=== PATIENT | female | born 1960 | race African-American/Black ===

== ENCOUNTER 2016-12-07 10:18 | Inpatient (IN) | payer OTHER ==
[2016-12-07 12:54] VITALS: BMI 26.6
--- NOTE | 2016-12-07 14:16 | HP ---
CIWA Score - CIWA Score Nausea/Vomitin Muscle Tremors: 3 Anxiety: 3 Agitation: 3 Paroxysmal Sweats: 1-Minimal Palms Moist Orientation: 0-Oriented Tacttile Disturbances: 2-Mild Itch/Numbness/Burn Auditory Disturbances: 2-Mild Harshness/Frighten Visual Disturbances: 2-Mild Sensitivity Headache: 2-Mild CIWA-Ar Total Score: 21 Admission ROS BHS - HPI Chief Complaint: i need help to stop drinking alcohol Allergies/Adverse Reactions: Allergies Allergy/AdvReac Type Severity Reaction Status Date / Time AMOXICILLIN Allergy Severe Rash Uncoded 12/07/16 14:09 History of Present Illness: this 56 years old female with alcohol dependence,withdrawal symptom,last detox [facility] 08/23/14 to 09/05/14 syncope alcohol related type 2 dm on insulin hypercholesterolemia ged no significant period of sobriety pancreatitis Exam Limitations: No Limitations - Ebola screening Have you traveled outside of the country in the last 21 days: No Have you had contact with anyone from an Ebola affected area: No Have you been sick,other than usual withdrawal symptoms: No - Review of Systems Constitutional: Loss of Appetite, Malaise, Night Sweats, Changes in sleep, Weakness EENT: reports: Nose Congestion, Other (hisory of otitis mastoiditis in the past) Respiratory: reports: No Symptoms reported Cardiac: reports: No Symptoms Reported GI: reports: Nausea, Vomiting, Abdominal cramping, Other (history of pancreatitis) : reports: No Symptoms Reported Musculoskeletal: reports: Back Pain, Muscle Pain Integumentary: reports: Dryness Neuro: reports: Headache, Tremors Endocrine: reports: No Symptoms Reported Hematology: reports: No Symptoms Reported Psychiatric: reports: Judgement Intact, Mood/Affect Appropiate, Orientated x3, Anxious Patient History - Patient Medical History Hx Anemia: No Hx Asthma: No Hx Chronic Obstructive Pulmonary Disease (COPD): No Hx Cancer: No Hx Cardiac Disorders: No Hx Congestive Heart Failure: No Hx Hypertension: Yes Hx Hypercholesterolemia: Yes (NON COMPLIANCE) Hx Pacemaker: No HX Cerebrovascular Accident: No Hx Seizures: No Hx Dementia: No Hx Diabetes: Yes Hx Gastrointestinal Disorders: No Hx Liver Disease: No Hx Genitourinary Disorders: No Hx Sexually Transmitted Disorders: No Hx Renal Disease (ESRD): No Hx Thyroid Disease: No Hx Human Immunodeficiency Virus (HIV): No (never been tested) Hx Hepatitis C: No Hx Depression: Yes (anxiety) Hx Suicide Attempt: No Hx Bipolar Disorder: No Hx Schizophrenia: No Other Medical History: no suicidal,no homicidal - Patient Surgical History Past Surgical History: Yes Hx Neurologic Surgery: No Hx Cataract Extraction: No Hx Cardiac Surgery: No Hx Lung Surgery: No Hx Breast Surgery: No Hx Breast Biopsy: No Hx Abdominal Surgery: Yes (c section ) Hx Appendectomy: Yes (IN 1989) Hx Cholecystectomy: No Hx Genitourinary Surgery: No Hx Section: No Hx Orthopedic Surgery: No - PPD History Documented Results: Positive w/o proof Date: 03/13/14 PPD to be Administered?: No - Smoking Cessation Smoking history: Current every day smoker Have you smoked in the past 12 months: Yes Aproximately how many cigarettes per day: 10 Hx Chewing Tobacco Use: No Initiated information on smoking cessation: Yes 'Breaking Loose' booklet given: 12/07/16 - Substance & Tx. History Hx Alcohol Use: Yes Hx Substance Use: No Substance Use Type: Alcohol Hx Substance Use Treatment: Yes ([facility] 09/01/14 to 09/05/14) - Substances Abused Alcohol-vodka Route: Oral Frequency: Daily Amount used: 1 1/2 pts. Age of first use: 20 Date of Last Use: 12/07/16 Family Disease History - Family Disease History Family Disease History: Diabetes: Sister, Heart Disease: Father (), Mother (ALCOHOL,), Respiratory: Son (THC), Other: Father, Son Admission Physical Exam BHS - Vital Signs Vital Signs: Vital Signs - 24 hr 12/07/16 12:52 Temperature 97.4 F L Pulse Rate 84 Respiratory 20 Rate Blood Pressure 132/76 - Physical General Appearance: Yes: Moderate Distress, Tremorous, Irritable, Sweating, Anxious HEENTM: Yes: Nasal Congestion (history of mastoiditis right) Respiratory: Yes: Lungs Clear, Normal Breath Sounds, No Respiratory Distress Neck: Yes: Within Normal Limits Breast: Yes: Breast Exam Deferred Cardiology: Yes: Within Normal Limits, Regular Rhythm, Regular Rate, S1, S2 Abdominal: Yes: Within Normal Limits, Normal Bowel Sounds, Non Tender, Flat, Soft Genitourinary: Yes: Within Normal Limits Back: Yes: Muscle Spasm Musculoskeletal: Yes: full range of Motion, Back pain Extremities: Yes: Normal Range of Motion, Tremors Neurological: Yes: steel fitter II-XII NML intact, Fully Oriented, Alert, Motor Strength 5/5 Integumentary: Yes: Dry Lymphatic: Yes: Within Normal Limits - Diagnostic (1) Alcohol dependence with uncomplicated withdrawal Current Visit: Yes Status: Acute (2) Essential (primary) hypertension Current Visit: No Status: Acute (3) Hypercholesteremia Current Visit: No Status: Acute (4) Insomnia Current Visit: No Status: Acute (5) Nicotine dependence Current Visit: No Status: Acute (6) Right shoulder injury Current Visit: No Status: Acute (7) Syncope Current Visit: No Status: Acute (8) Pancreatitis Current Visit: Yes Status: Acute (9) Frequent falls Current Visit: Yes Status: Acute (10) Anxiety Current Visit: Yes Status: Acute Cleared for Admission BHS - Detox or Rehab [facility] Level of Care: Medically Managed Detox Regimen/Protocol: Librium S Breath Alcohol Content Breath Alcohol Content: 0 Urine Pregancy Test - Result Urine Test Results: Negative- NO Line Present Urine Drug Screen - Results Drug Screen Negative: No Urine Drug Screen Results: TCA-Tricyclic Antidepress
[2016-12-07] MEDS ORDERED: MAG HYDROX/AL HYDROX/SIMETH 30 ML UNIT-DOSE CUP PO PRN (14:48)
[2016-12-07] MEDS ORDERED: LOPERAMIDE HCL 2 MG CAPSULE PO PRN (14:48)
[2016-12-07] MEDS ORDERED: hydrOXYzine PAMOATE 25 MG CAPSULE (FP) PO PRN (14:48)
[2016-12-07] MEDS ORDERED: MAGNESIUM HYDROX 2400MG/30ML ORAL SUSPENSION 30 ML CUP PO PRN (14:48)
[2016-12-07] MEDS ORDERED: P-EPHED 60MG/TRIPROLIDI 2.5MG TABLET PO PRN (14:48)
[2016-12-07] MEDS ORDERED: ACETAMINOPHEN 325 MG TABLET (FP) PO PRN (14:48)
[2016-12-07] MEDS ORDERED: MAGNESIUM CITRATE 300 ML BOTTLE PO PRN (14:48)
[2016-12-07] MEDS ORDERED: guaiFENesin/D-METHORPHAN HB 10 ML UNIT-DOSE CUPS PO PRN (14:48)
[2016-12-07] MEDS ORDERED: MENTHOL/PHENOL 1 EACH UD MM PRN (14:48)
--- NOTE | 2016-12-07 15:27 | CONSULT ---
[facility] Psychiatric Consult - Data Substance Abuse History: Smoking history: Current every day smoker. Have you smoked in the past 12 months: Yes. Aproximately how many cigarettes per day: 10. Hx Chewing Tobacco Use: No. Initiated information on smoking cessation: Yes. 'Breaking Loose' booklet given: 12/07/16. - Substance & Tx. History. Hx Alcohol Use: Yes. Hx Substance Use: No. Substance Use Type: Alcohol. Hx Substance Use Treatment: Yes ([facility] 09/01/14 to 09/05/14). - Substances Abused. Alcohol-vodka. Route: Oral. Frequency: Daily. Amount used: 1 1/2 pts. Age of first use: 20. Date of Last Use: 12/07/16
[2016-12-07] MEDS ORDERED: chlordiazePOXIDE HCL 25 MG CAPSULE PO ONE (16:00)
[2016-12-07] MEDS: metFORMIN HCL 500 MG TABLET (FP) PO SCH (16:50)
[2016-12-07] MEDS: chlordiazePOXIDE HCL 25 MG CAPSULE PO SCH ×2 (17:10→23:12)
[2016-12-07] MEDS: NICOTINE 21 MG/24 HOURS TOPICAL PATCH TD SCH (17:51)
[2016-12-07] MEDS: ATORVASTATIN CA 40 MG TABLET (FP) PO SCH (22:10)
[2016-12-07] MEDS: THIAMINE HCL 100 MG TABLET (FP) PO SCH (22:10)
[2016-12-07] MEDS: INSULIN DETEMIR 100 UNITS/ML MDV SQ SCH (23:12)
[2016-12-08 03:11] LABS: URINE APPEARANCE SLCLOUDY; URINE BILIRUBIN NEGATIVE (NEGATIVE); URINE BLOOD NEGATIVE (NEGATIVE); URINE COLOR YELLOW; URINE GLUCOSE (UA) 1+ (NEGATIVE); URINE KETONE TRACE (NEGATIVE); URINE NITRITE NEGATIVE (NEGATIVE); URINE UROBILINOGEN NEGATIVE E.U./dl (0.2-1.0)
[2016-12-08 03:12] LABS: URINE LEUK ESTERASE 3+ (NEGATIVE); URINE PROTEIN 1+ (NEGATIVE)
[2016-12-08 03:21] LABS: URINE BACTERIA RARE /hpf (NONE SEEN); URINE HYALINE CAST 3 /lpf; URINE MUCUS RARE; URINE RBC 4 /hpf (0-3); URINE WBC 7 /hpf (3-5)
[2016-12-08] MEDS: chlordiazePOXIDE HCL 25 MG CAPSULE PO SCH ×4 (05:56→22:02)
[2016-12-08] MEDS: IBUPROFEN 400 MG TABLET (FP) PO PRN ×2 (07:10→17:41)
--- NOTE | 2016-12-08 09:53 | CONSULT ---
[facility] Psychiatric Consult - Data Date of interview: 12/08/16 Admission source: [facility] Identifying data: Readmission to [facility] for this 56 y/o [place]born female seeking detox treatment for alcohol dependence.Patient is ,a mother of two,domiciled and employed. Substance Abuse History: - Smoking Cessation. Smoking history: Current every day smoker. Have you smoked in the past 12 months: Yes. Aproximately how many cigarettes per day: 10. Hx Chewing Tobacco Use: No. Initiated information on smoking cessation: Yes. 'Breaking Loose' booklet given: 12/07/16. - Substance & Tx. History. Hx Alcohol Use: Yes. Hx Substance Use: No. Substance Use Type : Alcohol. Hx Substance Use Treatment: Yes ([facility] 09/01/14 to 09/05/14). - Substances Abused. Alcohol-vodka. Route: Oral. Frequency: Daily. Amount used: 1 1/2 pts. Age of first use: 20. Date of Last Use: 12/07/16. Confirmed by patient. Medical History: Hypertension,diabetes mellitus,GERD,hypercholesterolemia, pancreatitis and a history of otitis/sinusitis.History of frequent falls ( related to vestibular issues).Awaits ENT surgery (as per self-report). Psychiatric History: Patient denies. Physical/Sexual Abuse/Trauma History: Patient denies. Additional Comment: Urine Drug Screen Results: TCA-Tricyclic Antidepressant.Noted. Mental Status Exam - Mental Status Exam Alert and Oriented to: Time, Place, Person Cognitive Function: Good Patient Appearance: Well Groomed Mood: Hopeful, Euthymic Affect: Appropriate, Normal Range Patient Behavior: Fatigued, Appropriate, Cooperative Speech Pattern: Clear, Appropriate Voice Loudness: Normal Thought Process: Goal Oriented Thought Disorder: Not Present Hallucinations: Denies Suicidal Ideation: Denies Homicidal Ideation: Denies Insight/Judgement: Fair Sleep: Fair Appetite: Good Muscle strength/Tone: Normal Gait/Station: Normal Psychiatric Findings - Problem List ([place] 1, 2,3) (1) Alcohol dependence with uncomplicated withdrawal Current Visit: Yes Status: Acute (2) Nicotine dependence Current Visit: Yes Status: Acute (3) Diabetes mellitus Current Visit: Yes Status: Chronic (4) Essential (primary) hypertension Current Visit: Yes Status: Chronic (5) Hypercholesteremia Current Visit: Yes Status: Chronic (6) Frequent falls Current Visit: Yes Status: Acute (7) Pancreatitis Current Visit: Yes Status: Chronic (8) Insomnia Current Visit: No Status: Acute - Initial Treatment Plan Initial Treatment Plan: Psychoeducation.Detoxification in progress.Insomnia is managed with benadryl 50 mg po hs prn.Side effects/benefits reviewed with patient.She agrees with this careplan.Observation.
[2016-12-08 09:57] LABS: MCH 33.7 pg (25.7-33.7); MEAN PLT VOLUME 9.9 fl (7.5-11.1); PLATELET COUNT 181 K/MM3 (134-434); RDW 17.4 % (11.6-15.6); WHITE BLOOD COUNT 6.5 K/mm3 (4.0-10.0)
[2016-12-08] MEDS: metFORMIN HCL 500 MG TABLET (FP) PO SCH ×2 (09:59→17:42)
[2016-12-08] MEDS: LIDOCAINE 5% TOPICAL PATCH TP SCH (10:00)
--- NOTE | 2016-12-08 10:07 | PN ---
[facility] CIWA - CIWA Score Nausea/Vomitin Muscle Tremors: 3 Anxiety: 3 Agitation: 3 Paroxysmal Sweats: 3 Orientation: 0-Oriented Tacttile Disturbances: 2-Mild Itch/Numbness/Burn Auditory Disturbances: 0-None Visual Disturbances: 0-None Headache: 0-None Present CIWA-Ar Total Score: 17 BHS Progress Note (SOAP) Subjective: interrupted sleep, sweats, decreased appetite, dm, lbp Objective: 12/08/16 10:05 Vital Signs Temperature 97.9 F 12/08/16 06:28 Pulse Rate 68 12/08/16 06:28 Respiratory Rate 16 12/08/16 06:28 Blood Pressure 143/77 12/08/16 06:28 O2 Sat by Pulse Oximetry (%) Laboratory Tests 12/07/16 12/07/16 12/07/16 14:45 16:34 21:36 POC Glucometer 162 136 219 Urine Color Urine Appearance Urine pH Ur Specific [place] Urine Protein Urine Glucose (UA) Urine Ketones Urine Blood Urine Nitrite Urine Bilirubin Urine Urobilinogen Ur Leukocyte Esterase Urine RBC Urine WBC Ur Epithelial Cells Urine Bacteria Hyaline Casts Urine Mucus 12/07/16 12/08/16 23:21 05:54 POC Glucometer 81 Urine Color Yellow Urine Appearance Slcloudy Urine pH 5.0 Ur Specific [place] 1.028 Urine Protein 1+ H Urine Glucose (UA) 1+ H D Urine Ketones Trace H Urine Blood Negative Urine Nitrite Negative Urine Bilirubin Negative Urine Urobilinogen Negative Ur Leukocyte Esterase 3+ H Urine RBC 4 Urine WBC 7 Ur Epithelial Cells Moderate Urine Bacteria Rare Hyaline Casts 3 Urine Mucus Rare pending labs pt aox3 in nad ambulating lb- decreased rom 12/08/16 10:06 Assessment: 12/08/16 10:05 withdrawal sx's lbp dm htn Plan: cont. detox increase fluids lidocaine patch f/up pending labs
[2016-12-08] MEDS: VALSARTAN 160 MG TABLET (UD) PO SCH (10:26)
[2016-12-08] MEDS: PRENATAL VITAMINS W/ FOLIC ACID TABLET (FP) PO SCH (10:26)
[2016-12-08] MEDS: ASPIRIN 81 MG CHEWABLE TABLETS PO SCH (10:26)
[2016-12-08] MEDS: PANTOPRAZOLE 40 MG TABLET (FP) PO SCH (10:26)
[2016-12-08] MEDS: ATENOLOL 50 MG TABLET (FP) PO SCH (10:27)
[2016-12-08] MEDS: NICOTINE 21 MG/24 HOURS TOPICAL PATCH TD SCH (10:27)
[2016-12-08 10:37] LABS: ALBUMIN 4.1 g/dl (3.4-5.0); BILIRUBIN,TOTAL 0.4 mg/dL (0.2-1.0); CALCIUM 9.8 mg/dL (8.5-10.1); COCKROFT - GAULT 64.6425; CREATININE 1.1 mg/dL (0.55-1.02); TOT PROT 7.3 g/dl (6.4-8.2)
[2016-12-08] MEDS: chlordiazePOXIDE HCL 25 MG CAPSULE PO PRN (12:56)
--- NOTE | 2016-12-08 13:15 | EKG ---
Test Reason : Blood Pressure : / mmHG Vent. Rate : 065 BPM Atrial Rate : 065 BPM P-R Int : 168 ms QRS Dur : 076 ms QT Int : 428 ms P-R-T Axes : 063 063 053 degrees QTc Int : 445 ms NORMAL SINUS RHYTHM POOR R WAVE PROGRESSION ABNORMAL ECG NO PREVIOUS ECGS AVAILABLE Confirmed by EZEKIEL PENA, TAHIR ([id number]) on 12/08/2016 1:14:33 PM Referred By: Confirmed By:TAHIR FALCON MD
[2016-12-08] MEDS: ATORVASTATIN CA 40 MG TABLET (FP) PO SCH (22:01)
[2016-12-08] MEDS: INSULIN DETEMIR 100 UNITS/ML MDV SQ SCH (22:02)
[2016-12-08] MEDS: THIAMINE HCL 100 MG TABLET (FP) PO SCH (22:04)
[2016-12-09] MEDS: chlordiazePOXIDE HCL 25 MG CAPSULE PO SCH ×2 (06:00→10:14)
[2016-12-09] MEDS: metFORMIN HCL 500 MG TABLET (FP) PO SCH ×2 (06:02→18:00)
[2016-12-09] MEDS: ATENOLOL 50 MG TABLET (FP) PO SCH (10:13)
[2016-12-09] MEDS: VALSARTAN 160 MG TABLET (UD) PO SCH (10:14)
[2016-12-09] MEDS: NICOTINE 21 MG/24 HOURS TOPICAL PATCH TD SCH (10:14)
[2016-12-09] MEDS: PANTOPRAZOLE 40 MG TABLET (FP) PO SCH (10:14)
[2016-12-09] MEDS: ASPIRIN 81 MG CHEWABLE TABLETS PO SCH (10:14)
[2016-12-09] MEDS: IBUPROFEN 400 MG TABLET (FP) PO PRN ×2 (10:17→18:00)
[2016-12-09] MEDS: PRENATAL VITAMINS W/ FOLIC ACID TABLET (FP) PO SCH (10:18)
[2016-12-09] MEDS: LIDOCAINE 5% TOPICAL PATCH TP SCH (10:19)
[2016-12-09] MEDS ORDERED: LIDOCAINE 5% TOPICAL PATCH TP ONE (10:59)
--- NOTE | 2016-12-09 10:59 | PN ---
S CIWA - CIWA Score Nausea/Vomitin Muscle Tremors: 2 Anxiety: 2 Agitation: 2 Paroxysmal Sweats: 3 Orientation: 0-Oriented Tacttile Disturbances: 2-Mild Itch/Numbness/Burn Auditory Disturbances: 0-None Visual Disturbances: 0-None Headache: 0-None Present CIWA-Ar Total Score: 13 S Progress Note (SOAP) Subjective: interrupted sleep, sweats , rt rib pains Objective: 12/09/16 10:56 Vital Signs Temperature 96.8 F L 12/09/16 06:00 Pulse Rate 76 12/09/16 06:00 Respiratory Rate 18 12/09/16 06:00 Blood Pressure 149/75 12/09/16 06:00 O2 Sat by Pulse Oximetry (%) Laboratory Tests 12/07/16 12/07/16 12/07/16 14:45 16:34 21:36 WBC RBC Hgb Hct MCV MCHC RDW Plt Count MPV Sodium Potassium Chloride Carbon Dioxide Anion Gap BUN Creatinine Creat Clearance w eGFR POC Glucometer 162 136 219 Random Glucose Calcium Total Bilirubin AST ALT Alkaline Phosphatase Total Protein Albumin Triglycerides Cholesterol Total LDL Cholesterol HDL Cholesterol Total Amylase Lipase Urine Color Urine Appearance Urine pH Ur Specific [place] Urine Protein Urine Glucose (UA) Urine Ketones Urine Blood Urine Nitrite Urine Bilirubin Urine Urobilinogen Ur Leukocyte Esterase Urine RBC Urine WBC Ur Epithelial Cells Urine Bacteria Hyaline Casts Urine Mucus RPR Titer 12/07/16 12/08/16 12/08/16 23:21 05:54 06:00 WBC 6.5 RBC 3.37 L Hgb 11.3 Hct 34.4 MCV 102.0 H MCHC 33.0 RDW 17.4 H D Plt Count 181 MPV 9.9 Sodium Potassium Chloride Carbon Dioxide Anion Gap BUN Creatinine Creat Clearance w eGFR POC Glucometer 81 Random Glucose Calcium Total Bilirubin AST ALT Alkaline Phosphatase Total Protein Albumin Triglycerides Cholesterol Total LDL Cholesterol HDL Cholesterol Total Amylase Lipase Urine Color Yellow Urine Appearance Slcloudy Urine pH 5.0 Ur Specific [place] 1.028 Urine Protein 1+ H Urine Glucose (UA) 1+ H D Urine Ketones Trace H Urine Blood Negative Urine Nitrite Negative Urine Bilirubin Negative Urine Urobilinogen Negative Ur Leukocyte Esterase 3+ H Urine RBC 4 Urine WBC 7 Ur Epithelial Cells Moderate Urine Bacteria Rare Hyaline Casts 3 Urine Mucus Rare RPR Titer 04/18/17 04/18/17 04/18/17 06:00 06:00 16:55 WBC RBC Hgb Hct MCV MCHC RDW Plt Count MPV Sodium 140 Potassium 5.0 D Chloride 108 H Carbon Dioxide 23 D Anion Gap 9 BUN 31 H Creatinine 1.1 H Creat Clearance w eGFR 51.20 POC Glucometer 190 Random Glucose 232 H D Calcium 9.8 Total Bilirubin 0.4 D AST 22 D ALT 24 D Alkaline Phosphatase 103 Total Protein 7.3 Albumin 4.1 Triglycerides 171 H Cholesterol 204 H Total LDL Cholesterol 115 H HDL Cholesterol 67 H Total Amylase 84 Lipase 607 H Urine Color Urine Appearance Urine pH Ur Specific [place] Urine Protein Urine Glucose (UA) Urine Ketones Urine Blood Urine Nitrite Urine Bilirubin Urine Urobilinogen Ur Leukocyte Esterase Urine RBC Urine WBC Ur Epithelial Cells Urine Bacteria Hyaline Casts Urine Mucus RPR Titer Nonreactive 12/09/16 05:58 WBC RBC Hgb Hct MCV MCHC RDW Plt Count MPV Sodium Potassium Chloride Carbon Dioxide Anion Gap BUN Creatinine Creat Clearance w eGFR POC Glucometer 214 Random Glucose Calcium Total Bilirubin AST ALT Alkaline Phosphatase Total Protein Albumin Triglycerides Cholesterol Total LDL Cholesterol HDL Cholesterol Total Amylase Lipase Urine Color Urine Appearance Urine pH Ur Specific [place] Urine Protein Urine Glucose (UA) Urine Ketones Urine Blood Urine Nitrite Urine Bilirubin Urine Urobilinogen Ur Leukocyte Esterase Urine RBC Urine WBC Ur Epithelial Cells Urine Bacteria Hyaline Casts Urine Mucus RPR Titer pt aox3 lying in bed +tenderness along rt rib s Assessment: 12/09/16 10:56 withdrawal sx' dm h/o pancreatitis elevated lipase rt ribs pain Plan: cont. detox increase fluids lidocaine patch repeat amylase monitor glucose and tx
[2016-12-09] MEDS: chlordiazePOXIDE 5 MG CAPSULE PO SCH ×2 (18:00→22:06)
[2016-12-09] MEDS: THIAMINE HCL 100 MG TABLET (FP) PO SCH (22:06)
[2016-12-09] MEDS: ATORVASTATIN CA 40 MG TABLET (FP) PO SCH (22:06)
[2016-12-09] MEDS: INSULIN DETEMIR 100 UNITS/ML MDV SQ SCH (22:06)
[2016-12-09] MEDS: diphenhydrAMINE HCL 50 MG CAPSULE PO PRN (22:08)
[2016-12-10] MEDS: metFORMIN HCL 500 MG TABLET (FP) PO SCH ×2 (06:23→17:04)
[2016-12-10] MEDS: chlordiazePOXIDE 5 MG CAPSULE PO SCH ×2 (06:23→10:55)
[2016-12-10] MEDS: NICOTINE 21 MG/24 HOURS TOPICAL PATCH TD SCH (10:54)
[2016-12-10] MEDS: VALSARTAN 160 MG TABLET (UD) PO SCH (10:55)
[2016-12-10] MEDS: ATENOLOL 50 MG TABLET (FP) PO SCH (10:55)
[2016-12-10] MEDS: PANTOPRAZOLE 40 MG TABLET (FP) PO SCH (10:55)
[2016-12-10] MEDS: PRENATAL VITAMINS W/ FOLIC ACID TABLET (FP) PO SCH (10:55)
--- NOTE | 2016-12-10 11:08 | PN ---
BHS Progress Note (SOAP) Subjective: lbp,left hip pain Objective: 12/10/16 11:04 Vital Signs Temperature 97.2 F L 12/10/16 09:59 Pulse Rate 80 12/10/16 09:59 Respiratory Rate 18 12/10/16 09:59 Blood Pressure 153/76 12/10/16 09:59 O2 Sat by Pulse Oximetry (%) Laboratory Tests 12/07/16 12/07/16 12/07/16 14:45 16:34 21:36 WBC RBC Hgb Hct MCV MCHC RDW Plt Count MPV Sodium Potassium Chloride Carbon Dioxide Anion Gap BUN Creatinine Creat Clearance w eGFR POC Glucometer 162 136 219 Random Glucose Calcium Total Bilirubin AST ALT Alkaline Phosphatase Total Protein Albumin Triglycerides Cholesterol Total LDL Cholesterol HDL Cholesterol Total Amylase Lipase Urine Color Urine Appearance Urine pH Ur Specific [place] Urine Protein Urine Glucose (UA) Urine Ketones Urine Blood Urine Nitrite Urine Bilirubin Urine Urobilinogen Ur Leukocyte Esterase Urine RBC Urine WBC Ur Epithelial Cells Urine Bacteria Hyaline Casts Urine Mucus RPR Titer 12/07/16 12/08/16 12/08/16 23:21 05:54 06:00 WBC 6.5 RBC 3.37 L Hgb 11.3 Hct 34.4 MCV 102.0 H MCHC 33.0 RDW 17.4 H D Plt Count 181 MPV 9.9 Sodium Potassium Chloride Carbon Dioxide Anion Gap BUN Creatinine Creat Clearance w eGFR POC Glucometer 81 Random Glucose Calcium Total Bilirubin AST ALT Alkaline Phosphatase Total Protein Albumin Triglycerides Cholesterol Total LDL Cholesterol HDL Cholesterol Total Amylase Lipase Urine Color Yellow Urine Appearance Slcloudy Urine pH 5.0 Ur Specific [place] 1.028 Urine Protein 1+ H Urine Glucose (UA) 1+ H D Urine Ketones Trace H Urine Blood Negative Urine Nitrite Negative Urine Bilirubin Negative Urine Urobilinogen Negative Ur Leukocyte Esterase 3+ H Urine RBC 4 Urine WBC 7 Ur Epithelial Cells Moderate Urine Bacteria Rare Hyaline Casts 3 Urine Mucus Rare RPR Titer 12/08/16 12/08/16 12/08/16 06:00 06:00 16:55 WBC RBC Hgb Hct MCV MCHC RDW Plt Count MPV Sodium 140 Potassium 5.0 D Chloride 108 H Carbon Dioxide 23 D Anion Gap 9 BUN 31 H Creatinine 1.1 H Creat Clearance w eGFR 51.20 POC Glucometer 190 Random Glucose 232 H D Calcium 9.8 Total Bilirubin 0.4 D AST 22 D ALT 24 D Alkaline Phosphatase 103 Total Protein 7.3 Albumin 4.1 Triglycerides 171 H Cholesterol 204 H Total LDL Cholesterol 115 H HDL Cholesterol 67 H Total Amylase 84 Lipase 607 H Urine Color Urine Appearance Urine pH Ur Specific [place] Urine Protein Urine Glucose (UA) Urine Ketones Urine Blood Urine Nitrite Urine Bilirubin Urine Urobilinogen Ur Leukocyte Esterase Urine RBC Urine WBC Ur Epithelial Cells Urine Bacteria Hyaline Casts Urine Mucus RPR Titer Nonreactive 12/09/16 12/09/16 12/09/16 05:58 11:30 20:37 WBC RBC Hgb Hct MCV MCHC RDW Plt Count MPV Sodium Potassium Chloride Carbon Dioxide Anion Gap BUN Creatinine Creat Clearance w eGFR POC Glucometer 214 331 Random Glucose Calcium Total Bilirubin AST ALT Alkaline Phosphatase Total Protein Albumin Triglycerides Cholesterol Total LDL Cholesterol HDL Cholesterol Total Amylase Lipase 978 H Urine Color Urine Appearance Urine pH Ur Specific [place] Urine Protein Urine Glucose (UA) Urine Ketones Urine Blood Urine Nitrite Urine Bilirubin Urine Urobilinogen Ur Leukocyte Esterase Urine RBC Urine WBC Ur Epithelial Cells Urine Bacteria Hyaline Casts Urine Mucus RPR Titer 12/10/16 06:21 WBC RBC Hgb Hct MCV MCHC RDW Plt Count MPV Sodium Potassium Chloride Carbon Dioxide Anion Gap BUN Creatinine Creat Clearance w eGFR POC Glucometer 201 Random Glucose Calcium Total Bilirubin AST ALT Alkaline Phosphatase Total Protein Albumin Triglycerides Cholesterol Total LDL Cholesterol HDL Cholesterol Total Amylase Lipase Urine Color Urine Appearance Urine pH Ur Specific [place] Urine Protein Urine Glucose (UA) Urine Ketones Urine Blood Urine Nitrite Urine Bilirubin Urine Urobilinogen Ur Leukocyte Esterase Urine RBC Urine WBC Ur Epithelial Cells Urine Bacteria Hyaline Casts Urine Mucus RPR Titer pt aox3 in nad , no n/or vomiting tolerating po Assessment: 12/10/16 11:04 withdrawal sx's lbp/left hip pain chronic pancreatitis - spoke with dr. don'c office manger who gave previous labs lipase 1094 and 799- stated pt should make appt at d/c with pmd . Plan: cont. detox increase fluids d/c in am f/up with PMD/GI upon d/c .
[2016-12-10] MEDS: IBUPROFEN 400 MG TABLET (FP) PO PRN (11:16)
[2016-12-10] MEDS: ASPIRIN 81 MG CHEWABLE TABLETS PO SCH (11:18)
[2016-12-10] MEDS: LIDOCAINE 5% TOPICAL PATCH TP SCH ×2 (11:39)
[2016-12-10] MEDS: chlordiazePOXIDE HCL 25 MG CAPSULE PO PRN (14:34)
[2016-12-10] MEDS ORDERED: cloNIDine HCL 0.1 MG TABLET PO ONE (16:52)
[2016-12-10] MEDS: chlordiazePOXIDE HCL 10 MG CAPSULE PO SCH ×2 (17:04→22:29)
[2016-12-10] MEDS: ATORVASTATIN CA 40 MG TABLET (FP) PO SCH (22:29)
[2016-12-10] MEDS: diphenhydrAMINE HCL 50 MG CAPSULE PO PRN (22:30)
[2016-12-10] MEDS: THIAMINE HCL 100 MG TABLET (FP) PO SCH (22:30)
[2016-12-10] MEDS: INSULIN DETEMIR 100 UNITS/ML MDV SQ SCH (23:31)
[2016-12-11] MEDS: chlordiazePOXIDE HCL 10 MG CAPSULE PO SCH (05:40)
[2016-12-11] MEDS: metFORMIN HCL 500 MG TABLET (FP) PO SCH (07:07)
[2016-12-11] MEDS: IBUPROFEN 400 MG TABLET (FP) PO PRN (10:29)
[2016-12-11] MEDS: PRENATAL VITAMINS W/ FOLIC ACID TABLET (FP) PO SCH (10:29)
[2016-12-11] MEDS: PANTOPRAZOLE 40 MG TABLET (FP) PO SCH (10:29)
[2016-12-11] MEDS: ASPIRIN 81 MG CHEWABLE TABLETS PO SCH (10:29)
[2016-12-11] MEDS: VALSARTAN 160 MG TABLET (UD) PO SCH (10:30)
[2016-12-11] MEDS: LIDOCAINE 5% TOPICAL PATCH TP SCH ×2 (10:30→10:31)
[2016-12-11] MEDS: NICOTINE 21 MG/24 HOURS TOPICAL PATCH TD SCH (10:30)
[2016-12-11] MEDS: ATENOLOL 50 MG TABLET (FP) PO SCH (10:30)
[2016-12-11 12:00] VITALS: BP 141/78; PULSE 86; TEMP 97.9
--- NOTE | 2016-12-11 13:25 | DS ---
[facility] Detox Discharge Summary Admission Date: 12/07/16 Discharge Date: 12/11/16 - History Present History: Alcohol Dependence Additional Comments: ADVISED PATIENT TO FOLLOW-UP WITH [facility] / REHAB MEDICAL PROVIDER AFTER DISCHARGE FROM DETOX FOR GENERAL MEDICAL ASSESSMENT AND FOR ABNORMAL ADMISSION LAB VALUES. Pertinent Past History: HTN, DM, Hypercholesterolemia, Depression / Anxiety. - Physical Exam Results Vital Signs: Vital Signs Temperature 97.9 F 12/11/16 11:59 Pulse Rate 86 12/11/16 11:59 Respiratory Rate 16 12/11/16 11:59 Blood Pressure 141/78 12/11/16 11:59 O2 Sat by Pulse Oximetry (%) Pertinent Admission Physical Exam Findings: WITHDRAWAL SYMPTOMS. Laboratory Last Values WBC 6.5 K/mm3 (4.0-10.0) 12/08/16 06:00 RBC 3.37 M/mm3 (3.60-5.2) L 12/08/16 06:00 Hgb 11.3 GM/dL (10.7-15.3) 12/08/16 06:00 Hct 34.4 % (32.4-45.2) 12/08/16 06:00 MCV 102.0 fl (80-96) H 12/08/16 06:00 MCHC 33.0 g/dl (32.0-36.0) 12/08/16 06:00 RDW 17.4 % (11.6-15.6) H D 12/08/16 06:00 Plt Count 181 K/MM3 (134-434) 12/08/16 06:00 MPV 9.9 fl (7.5-11.1) 12/08/16 06:00 Sodium 140 mmol/L (136-145) 12/08/16 06:00 Potassium 5.0 mmol/L (3.5-5.1) D 12/08/16 06:00 Chloride 108 mmol/L (98-107) H 12/08/16 06:00 Carbon Dioxide 23 mmol/L (21-32) D 12/08/16 06:00 Anion Gap 9 (8-16) 12/08/16 06:00 BUN 31 mg/dL (7-18) H 12/08/16 06:00 Creatinine 1.1 mg/dL (0.55-1.02) H 12/08/16 06:00 Creat Clearance w eGFR 51.20 (>60) 12/08/16 06:00 POC Glucometer 331 UNITS (()) 12/11/16 05:40 Random Glucose 232 mg/dL (74-106) H D 12/08/16 06:00 Calcium 9.8 mg/dL (8.5-10.1) 12/08/16 06:00 Total Bilirubin 0.4 mg/dL (0.2-1.0) D 12/08/16 06:00 AST 22 U/L (15-37) D 12/08/16 06:00 ALT 24 U/L (12-78) D 12/08/16 06:00 Alkaline Phosphatase 103 U/L (45-117) 12/08/16 06:00 Total Protein 7.3 g/dl (6.4-8.2) 12/08/16 06:00 Albumin 4.1 g/dl (3.4-5.0) 12/08/16 06:00 Triglycerides 171 mg/dL (35-160) H 12/08/16 06:00 Cholesterol 204 mg/dL (50-200) H 12/08/16 06:00 Total LDL Cholesterol 115 mg/dL (5-100) H 12/08/16 06:00 HDL Cholesterol 67 mg/dL (40-60) H 12/08/16 06:00 Total Amylase 84 U/L (25-115) 12/08/16 06:00 Lipase 978 U/L (73-393) H 12/09/16 11:30 Urine Color Yellow 12/07/16 23:21 Urine Appearance Slcloudy 12/07/16 23:21 Urine pH 5.0 (5.0-8.0) 12/07/16 23:21 Ur Specific Bryan 1.028 (1.001-1.035) 12/07/16 23:21 Urine Protein 1+ (NEGATIVE) H 12/07/16 23:21 Urine Glucose (UA) 1+ (NEGATIVE) H D 12/07/16 23:21 Urine Ketones Trace (NEGATIVE) H 12/07/16 23:21 Urine Blood Negative (NEGATIVE) 12/07/16 23:21 Urine Nitrite Negative (NEGATIVE) 12/07/16 23:21 Urine Bilirubin Negative (NEGATIVE) 12/07/16 23:21 Urine Urobilinogen Negative E.U./dl (0.2-1.0) 12/07/16 23:21 Ur Leukocyte Esterase 3+ (NEGATIVE) H 12/07/16 23:21 Urine RBC 4 /hpf (0-3) 12/07/16 23:21 Urine WBC 7 /hpf (3-5) 12/07/16 23:21 Ur Epithelial Cells Moderate /hpf (FEW) 12/07/16 23:21 Urine Bacteria Rare /hpf (NONE SEEN) 12/07/16 23:21 Hyaline Casts 3 /lpf 12/07/16 23:21 Urine Mucus Rare 12/07/16 23:21 RPR Titer Nonreactive (NONREACTIVE) 12/08/16 06:00 LABS NOTED. - Treatment Hospital Course: Detox Protocol Followed, Detoxed Safely, Responded well, Discharged Condition Good Patient has Accepted a Rehab Referral to: NO - PT. TO GO HOME; WILL PURSUE OUTPATIENT PROGRAM; 12-STEP/AA RECOMMENDED - Medication Discharge Medications: Ambulatory Orders Valsartan [Diovan] 160 mg PO DAILY 03/11/14 Aspirin [ASA -] 81 mg PO DAILY 09/01/14 Metformin HCl [Glucophage -] 500 mg PO BID 09/01/14 Atenolol [Tenormin -] 50 mg PO DAILY 12/07/16 Atorvastatin Calcium 40 mg PO HS 12/07/16 Folic Acid - 1 mg PO DAILY 12/07/16 Insulin Glargine,Hum.rec.anlog [Lantus Solostar PEN (NF)] 15 units SQ HS Omeprazole 20 mg PO DAILY 12/07/16 - Diagnosis (1) Alcohol dependence with uncomplicated withdrawal Status: Acute (2) Anxiety Status: Chronic (3) Frequent falls Status: Chronic (4) Insomnia Status: Chronic Qualifiers: Insomnia type: unspecified Qualified Code(s): G47.00 - Insomnia, unspecified (5) Nicotine dependence Status: Chronic Qualifiers: Nicotine product type: cigarettes Substance use status: uncomplicated Qualified Code(s): F17.210 - Nicotine dependence, cigarettes, uncomplicated (6) Right shoulder injury Status: Acute (7) Urinary tract infection Status: Acute Qualifiers: Urinary tract infection type: site unspecified (8) Diabetes mellitus Status: Chronic Qualifiers: Diabetes mellitus type: type 2 Diabetes mellitus complication status: without complication Diabetes mellitus [facility] insulin use: with [facility] use Qualified Code(s): E11.9 - Type 2 diabetes mellitus without complications (9) Essential (primary) hypertension Status: Chronic (10) Hypercholesteremia Status: Chronic (11) Syncope Status: Acute Qualifiers: Syncope type: unspecified Qualified Code(s): R55 - Syncope and collapse (12) Pancreatitis Status: Acute Qualifiers: Chronicity: acute Pancreatitis type: unspecified pancreatitis type Acute pancreatitis complication: unspecified Qualified Code(s): K85.90 - Acute pancreatitis without necrosis or infection, unspecified - AMA Did Patient Leave Against Medical Advice: No
== END 2016-12-11 10:41 | disposition home or self-care (01) | DRG 750 ==
LOC: YASAS 10:18 → Y6N 14:56
PROVIDERS: ADMIT Internal Medicine Addiction Medicine; ATTEND Internal Medicine Addiction Medicine
PROC: HZ2ZZZZ Detoxification Services for Substance Abuse Treatment (ICD-10-PCS; principal; 2016-12-11)
DX: F10.230 Alcohol dependence with withdrawal, uncomplicated (principal); K85.90 Acute pancreatitis without necrosis or infection, unspecified; N39.0 Urinary tract infection, site not specified; E11.9 Type 2 diabetes mellitus without complications; Z79.4 Long term (current) use of insulin; Z79.84 Long term (current) use of oral hypoglycemic drugs; I10 Essential (primary) hypertension; E78.00 Pure hypercholesterolemia, unspecified; R55 Syncope and collapse; G47.00 Insomnia, unspecified; Z91.81 History of falling
CPT/HCPCS: 36415; 71010-TC; 80053; 80061; 81003; 81015; 82150; 83690; 83721; 85027; 86593; 93005; 93010